=== PATIENT | female | born 1960 | race Caucasian/White ===

== ENCOUNTER → 2017-02-25 | Outpatient (CLI) | payer OTHER ==
[2015-02-16 15:29] VITALS: BP 120/83
[~2017-02-25] MED LIST: AMIT25TA PO; AMLO5TAB2 PO; CALC600T4 PO; CELE200C PO; CHOL20002 PO; CLON1TAB3 PO; EXEN2VIA SQ; FENO135C PO; FERR-26 PO; FLUO40CA2 PO; GLIP2.5T4 PO; LISI1TAB5 PO; OXYC-323 PO; Oxycodone Hcl/Acetaminophen PO; WARF-78 PO; WARF4TAB7 PO; Warfarin Sodium MC
--- NOTE | 2017-02-25 08:20 | RAD ---
Renal ultrasound, 02/25/2017: History: Right flank pain Two simple appearing right renal cysts are present. The largest of these measures 11.2 cm in diameter and arises from the upper pole. The overall length of the right kidney including the cyst is 19.2 cm. A 3.3 cm simple cyst is noted in the mid portion of the left kidney. There is no evidence of hydronephrosis. No abnormal perinephric process is seen. Limited views of the bladder show no abnormality. IMPRESSION: 1. Large right renal cyst measuring 11.2 cm. 2. Small left renal cyst. 3. No evidence of renal obstruction.
== END | disposition home or self-care (01) ==
LOC: US 07:03
PROVIDERS: ATTEND Family Medicine
DX: N28.1 Cyst of kidney, acquired (principal)
CPT/HCPCS: 76770

== ENCOUNTER → 2020-06-29 | Outpatient (CLI) | payer OTHER ==
[2015-02-16 15:29] VITALS: BP 120/83
[~2020-06-29] MED LIST changes: +AMLO-186 PO; -AMLO5TAB2 PO; -CALC600T4 PO; +CALC600T60 PO; -CHOL20002 PO; +CHOL200059 PO; -CLON1TAB3 PO; +CLONAZEPAM1 MG PO; -FERR-26 PO; +FERR325T14 PO; +LISI1TAB37 PO; -LISI1TAB5 PO; -OXYC-323 PO; +OXYC1TAB15 PO; -WARF-78 PO; +WARF4TAB64 PO; -WARF4TAB7 PO; +WARF5TAB2 PO
[2020-06-29] MEDS: REGADENOSON 0.4 MG/5 ML DISP.SYRIN. IV ONE (11:24)
--- NOTE | 2020-06-29 16:09 | RAD ---
MR#: [id number] Date of Study: 06/29/2020 Ordering Physician: CLINT ARREDONDO, Referring Physician: TISH AMAYA Tech: RT Joleen Kate) (N) APPROVED REPORT Test Type: Pharmacological Stress Nurse/Tech: Celeste Wallace RN Test Indications: chest pressure, bradycardia, weight loss Cardiac History: HTN, DM Medications: See Electronic Medical Record Medical History: See Electronic Medical Record Resting ECG: sinus bradycardia Resting Heart Rate: 48 bpm Resting Blood Pressure: 158/75mmHg Pretest Chest Pain: None Nurse/Tech Notes Lungs CTA, S1S2 Consent: The procedure was explained to the patient in lay terms. Informed consent was witnessed. [place] eout was entered into [employer]. History and Stress Test performed by RT Joleen Kate) (N) Pharm. Details Pharmacologic stress testing was performed using 0.4mg per 5ml of regadenoson given intravenously ove r 7-10 seconds. Stress Symptoms No chest pain or symptoms. POST EXERCISE Reason for Termination: Infusion complete Max HR: 92 bpm Max Blood Pressure: 151/74mmHg Blood Pressure response to exercise: Normal blood pressure response during stress. Heart Rate response to exercise: normal response Chest Pain: No. Arrhythmia: No. ST Change: No. INTERPRETATION Stress EKG Conclusion: Baseline EKG showed sinus rhythm. No ischemic changes at peak stress. No arr hythmias. Imaging Protocol IMAGE PROTOCOL: Rest Tc-99m/stress Tc-99m 1 day Rest: Stress: Viability: Radiopharm.Tc99m KxuwwyhwkHi74x Sestamibi Dose10.2mCi 30mCi Duration 15min. 10min. Img Date 06/29/2020 06/29/2020 Inj-Img Shcm52kge. 60min. Rest Admin Site:IV - Right AntecubitalAdministrator:RT Humble (Sami)(N) Stress Admin Site: IV - Right AntecubitalAdministrator: RT Humble (Sami)(N) STRESS DATA End Diast. Vol.81.0mlAv. Heart Rate69.0bpm End Syst. Vol.11.0mlCO Index BSA0.0L/min Myocardial Atwz576.0gEject. Sejmfeda07.0% Stress Rates Pk. Fill Rate3.20EDV/secLVtime Pk. Fill 252.08msec Pk. Empty Rate4.92ESV/secLVtime Pk. Xhlvs589.94msec 1/3 Pk. Fill1.74EDV/sec Stress Scores Regional WT0.00Summed WT0.00 Regional WM0.00Summed WM0.00 Study quality was good. Left Ventricular size was Normal at Rest and Stress. Lung uptake was . Left Ventricular ejection fraction is 85%. The rest and stress images show normal perfusion, normal contraction and thickening. LV Perf. Quant 17 Seg. SSS0.00 17 Seg. SRS0.00 17 Seg. SDS0.00 Stress Defect Extent (% LAD)0.00Rest Defect Extent (% LAD)0.00Rev. Defect Extent (% LAD)0.00 Stress Defect Extent (% LCX) 0.00Rest Defect Extent (% LCX)0.00Rev. Defect Extent (% LCX)0.00 Stress Defect Extent (% RCA)0.00Rest Defect Extent (% RCA)0.00Rev. Defect Extent (% RCA)0.00 Stress Defect Extent (% CRUZ)0.00Rest Defect Extent (% CRUZ)0.00Rev. Defect Extent (% CRUZ)0.00 Conclusion 1. Regadenoson cardioisotope stress test did not show any evidence of ischemia or infarct. 2. Normal left ventricular systolic function with ejection fraction calculated at 85%. 3. Low risk for cardiac events. Signed by : Amos Chowdhury, Electronically Approved : 06/29/2020 16:08:53
--- NOTE | 2020-06-29 16:31 | CARD ---
MR#: [id number] Date of Study: 06/29/2020 Ordering Physician: CLINT ARREDONDO, Referring Physician: CLINT ARREDONDO, Tech: Sulema Hussein [facility] APPROVED REPORT EXAM: Two-dimensional and M-mode echocardiogram with Doppler and color Doppler. Other Information Quality : AverageHR: 47bpm Rhythm : NSR INDICATION Dyspnea Chest Pain RISK FACTORS Hypertension Hyperlipidemia 2D DIMENSIONS RVDd3.0 (2.9-3.5cm)Left Atrium(2D)4.2 (1.6-4.0cm) IVSd0.9 (0.7-1.1cm)Aortic Root(2D)2.3 (2.0-3.7cm) LVDd4.2 (3.9-5.9cm)LVOT Diameter2.1 (1.8-2.4cm) PWd1.0 (0.7-1.1cm)LVDs2.3 (2.5-4.0cm) FS (%) 46.9 %SV63.3 ml LVEF(%)78.6 (>50%) Aortic Valve AoV Peak Eliecer.133.1cm/sAoV VTI34.0cm AO Peak GR.7.1mmHgLVOT Peak Eliecer.104.5cm/s AO Mean GR.3mmHgAVA (VMAX)2.60cm2 Mitral Valve MV E Pkgkgsba251.3cm/sMV DECEL WLON035bh MV A Nqqybcjv17.3cm/sE/A Ratio1.1 Pulmonary Valve PV Peak Dgeqabmq92.2cm/s Tricuspid Valve TR P. Kuhvvypi564ma/sTR Peak Gr.20mmHg Pulmonary Vein S1 Mtlufmxt59.7cm/sD2 Bulakmed01.2cm/s PVa pefuznjs781eswz LEFT VENTRICLE The left ventricle is normal size. There is normal left ventricular wall thickness. The left ventricu lar systolic function is normal. Estimated ejection fraction 55-60-%. There is normal LV segmental w all motion. The left ventricular diastolic function and filling is normal for age. RIGHT VENTRICLE The right ventricle is normal size. There is normal right ventricular wall thickness. The right ventr icular systolic function is normal. ATRIA The left atrium size is normal. The right atrium size is normal. The interatrial septum is intact wit h no evidence for an atrial septal defect or patent foramen ovale as noted on 2-D or Doppler imaging. AORTIC VALVE The aortic valve is mildly thickened but opens well. Doppler and Color Flow revealed mild aortic regu rgitation. There is no significant aortic valvular stenosis. MITRAL VALVE The mitral valve is normal in structure and function. There is no evidence of mitral valve prolapse. There is no mitral valve stenosis. Doppler and Color-flow revealed mild mitral regurgitation. TRICUSPID VALVE The tricuspid valve is normal in structure and function. Doppler and Color Flow revealed trace tricus pid regurgitation. Estimated 25 mmHg. There is no tricuspid valve stenosis. PULMONIC VALVE The pulmonary valve is normal in structure and function. Doppler and Color Flow revealed no pulmonic valvular regurgitation. GREAT VESSELS The aortic root is normal in size. The ascending aorta is normal in size. The IVC is normal in size a nd collapses >50% with inspiration. PERICARDIAL EFFUSION There is no evidence of significant pericardial effusion. Critical Notification Critical Value: No <Conclusion> The left ventricular systolic function is normal. Estimated ejection fraction 55-60-%. There is normal LV segmental wall motion. Mild aortic regurgitation. Mild mitral regurgitation. Trace tricuspid regurgitation. Estimated 25 mmHg. There is no evidence of significant pericardial effusion. Signed by : Amos Chowdhury, Electronically Approved : 06/29/2020 16:31:07
== END ==
LOC: NM 09:05
PROVIDERS: ATTEND Internal Medicine Cardiovascular Disease
DX: I08.0 Rheumatic disorders of both mitral and aortic valves (principal); R07.9 Chest pain, unspecified; E11.9 Type 2 diabetes mellitus without complications; I10 Essential (primary) hypertension; R00.1 Bradycardia, unspecified; R63.4 Abnormal weight loss
CPT/HCPCS: 78452; 93017; 93306; A9500; J2785